=== PATIENT | female | born 1960 | race Hispanic/Latino ===

== ENCOUNTER 2017-01-05 09:14 | Outpatient (CLI) | payer OTHER ==
[2017-01-05 10:01] LABS: ALT (SGPT) 18 U/L (8-55); AST (SGOT) 18 U/L (5-34); Albumin 4.3 g/dL (3.5-5.0); Alkaline Phosphatase 82 U/L (40-150); Anion Gap 12 mmol/L (10-20); BUN (Urea Nitrogen) 20 mg/dL (9.8-20.1); Bilirubin, Total 0.3 mg/dL (0.2-1.2); Calc. Creatinine Clearance 0 mL/min (70-130); Calcium 9.6 mg/dL (7.8-10.44); Carbon Dioxide 28 mmol/L (22-29); Chloride 103 mmol/L (98-107); Estimated GFR-MDRD 73; Globulin 3.7 g/dL (2.4-3.5); Glucose 91 mg/dL (70-105); Potassium 3.9 mmol/L (3.5-5.1); Sodium 139 mmol/L (136-145)
== END 2017-01-05 09:15 | disposition home or self-care (01) ==
LOC: BURLAB 09:14
PROVIDERS: ATTEND Internal Medicine Endocrinology, Diabetes & Metabolism
DX: R79.89 Other specified abnormal findings of blood chemistry (principal)
CPT/HCPCS: 36415; 80053; 84146

== ENCOUNTER 2017-05-20 09:06 | Outpatient (CLI) | payer OTHER ==
[2017-05-20 10:30] LABS: ALT (SGPT) 21 U/L (8-55); AST (SGOT) 16 U/L (5-34); Albumin 4.1 g/dL (3.5-5.0); Alkaline Phosphatase 82 U/L (40-150); Anion Gap 14 mmol/L (10-20); BUN (Urea Nitrogen) 14 mg/dL (9.8-20.1); Bilirubin, Total 0.3 mg/dL (0.2-1.2); Calc. Creatinine Clearance 0 mL/min (70-130); Calcium 9.5 mg/dL (7.8-10.44); Carbon Dioxide 26 mmol/L (22-29); Chloride 105 mmol/L (98-107); Estimated GFR-MDRD 77; Globulin 3.7 g/dL (2.4-3.5); Glucose 87 mg/dL (70-105); Potassium 3.8 mmol/L (3.5-5.1); Protein, Total 7.8 g/dL (6.0-8.3); Sodium 141 mmol/L (136-145)
[2017-05-20 10:48] LABS: Free T4 (Free Thyroxine) 0.92 ng/dL (0.70-1.48); Thyroid Stimulating Hormone 1.2907 uIU/mL (0.35-4.94)
[2017-05-20 17:43] LABS: Hep C IgG Ab Non-Reactive (NonReactive); Hep C Index 0.12 S/CO (0-0.79)
== END 2017-05-20 09:07 | disposition home or self-care (01) ==
LOC: BURLAB 09:06
PROVIDERS: ATTEND Internal Medicine Endocrinology, Diabetes & Metabolism
DX: R79.89 Other specified abnormal findings of blood chemistry (principal)
CPT/HCPCS: 36415; 80053; 84146; 84439; 84443; 86803